=== PATIENT | female | born 1970 | race Caucasian/White ===

== ENCOUNTER 2024-10-05 06:34 | Day surgery (SDC) | payer BC, SELFPAY ==
[2024-10-05 10:01] LABS: Glucose - Point of Care 103 mg/dl (70-99)
== END 2024-10-05 11:48 | disposition home or self-care (01) ==
LOC: GI 06:34
PROVIDERS: ATTENDING PHYSICIAN Internal Medicine
DX: Z12.11 Encounter for screening for malignant neoplasm of colon (principal); D12.3 Benign neoplasm of transverse colon; D12.5 Benign neoplasm of sigmoid colon; K63.5 Polyp of colon; K57.30 Diverticulosis of large intestine without perforation or abscess without bleeding; K31.89 Other diseases of stomach and duodenum; R13.10 Dysphagia, unspecified
CPT/HCPCS: 45380; 43249; 43239; 88305; 82962; 88342